=== PATIENT | male | born 1975 | race Two or more races ===

== ENCOUNTER 2019-04-18 13:20 | Emergency (ER) | payer BC, OTHER ==
--- NOTE | 2019-04-18 13:31 | PDOC ---
Rapid Medical Evaluation Time Seen by Provider: 04/18/19 13:28 Medical Evaluation: 04/18/19 13:28 I have performed a brief in-person evaluation of this patient. The patient presents with a chief complaint of: L neck/shoulder pain radiating to L elbow w/ numbness to fingers x 3 days. Had similar episode several years and dx w/ "tendinitis" to LUE and "arthritis" to c-spine. H/o HTN and DM Pertinent physical exam findings:Stable, unremarkable I have ordered the following:nothing The patient will proceed to the ED for further evaluation. 04/18/19 13:33 Discharge Disposition - Diagnosis Right arm pain - Referrals - Patient Instructions - Post Discharge Activity
[2019-04-18 13:37] VITALS: BP 146/105; PULSE 95; TEMP 98.4; BMI 26.6
[2019-04-18] MEDS ORDERED: IBUPROFEN 400 MG TABLET (FP) PO ONE ×2 (14:11→14:13)
[2019-04-18] MEDS ORDERED: CYCLOBENZAPRINE HCL 10 MG TABLET (FP) PO ONE (14:11)
[2019-04-18] MEDS ORDERED: CYCLOBENZAPRINE HCL 10 MG TABLET (FP) ONE (14:13)
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
== END 2019-04-18 17:25 | disposition home or self-care (01) ==
LOC: JERFT 13:20
DX: M54.12 Radiculopathy, cervical region (principal); I10 Essential (primary) hypertension; E11.9 Type 2 diabetes mellitus without complications; Z79.84 Long term (current) use of oral hypoglycemic drugs; M13.862 Other specified arthritis, left knee; M46.82 Other specified inflammatory spondylopathies, cervical region
CPT/HCPCS: 72125-TC; 99282-25

== ENCOUNTER 2020-08-04 17:53 | Emergency (ER) | payer BC, OTHER ==
--- NOTE | 2020-08-04 18:07 | PDOC ---
Rapid Medical Evaluation Medical Evaluation: Allergies Allergy/AdvReac Type Severity Reaction Status Date / Time No Known Allergies Allergy Verified 04/18/19 13:37 08/04/20 18:02 CC: rt hand weakness and "numbness to left 4th 5th digits since this am, temp of 99.0 2 days ago, + COVID 07/13 Exam: + sensation to left fingers x 5, flaccid rt hand, no facial asymmetry, ambulatory Plan: labs, head ct, iv, ekg 08/04/20 18:08 Discharge Disposition - Diagnosis Right hand weakness - Referrals - Patient Instructions - Post Discharge Activity
[2020-08-04 18:19] VITALS: TEMP 98.7; BMI 27.4
--- OUTSIDE RECORDS SUMMARY | 2020-08-04 18:23 | XMS ---
:1975 Author Organization [facility] Support Name Relationship Address Phone [facility] [employer] Unavailable [address] [place] [address] CARMEN NARANJO FRIEND [address] [facility] [place] [address] Re-disclosure Warning The records that you are about to access may contain information from federally- assisted alcohol or drug abuse programs. If such information is present, then the following federally mandated warning applies: This information has been disclosed to you from records protected by federal confidentiality rules (42 CFR part 2). The federal rules prohibit you from making any further disclosure of this information unless further disclosure is expressly permitted by the written consent of the person to whom it pertains or as otherwise permitted by 42 CFR part 2. A general authorization for the release of medical or other information is NOT sufficient for this purpose. The Federal rules restrict any use of the information to criminally investigate or prosecute any alcohol or drug abuse patient.The records that you are about to access may contain highly sensitive health information, the redisclosure of which is protected by Article 27-F of the [facility] Public Health law. If you continue you may haveaccess to information: Regarding HIV / AIDS; Provided by facilities licensed or operated by the [facility] Office of Mental Health; or Provided by the [facility] Office for People With Developmental Disabilities. If such information is present, then the following [facility] mandated warning applies: This information has been disclosed to you from confidential records which are protected by state law. State law prohibits you from making any further disclosure of this information without the specific written consent of the person to whom it pertains, or as otherwise permitted by law. Any unauthorized further disclosure in violation of state law may result in a fine or [place] health care facility sentence or both. A general authorization for the release of medical or other information is NOT sufficient authorization for further disclosure. Insurance Providers Payer Policy type Policy ID Covered Covered green party's Policy Pl an name / Coverage green party ID relationship to Reeder Inf ormation type reeder GHI CBP [id number] SP [id number] OUTPT BC PPO [id number] SP [id number] GHI CBP [id number] SP [id number] OUTPT BC PPO [id number] SP [id number] Results ID Date Data Source [id number] 07/13/2020 03:57:00 PM EDT [facility] Name Value Range Interpretation Code Description Data Annmarie rce(s) Supporting Document(s ) Rapid Covid [facility] Test (Nasal Swab) This lab was ordered by [facility] a nd reported by [facility]. ID Date Data Source [id number] 07/12/2020 02:54:00 PM EDT [facility] Name Value Range Interpretation Code Description Data Annmarie rce(s) Supporting Document(s ) SARS-CoV-2 [facility] ORF1ab Resp Ql NATALI+probe This lab was ordered by [facility] Results ([id number] ) and reported by [facility] Labs. Procedure
[2020-08-04] MEDS ORDERED: FOLIC ACID INJECTION - 1 MG, THIAMINE HCL 100 MG, MULTIVIT INJECTION ADULT 10 ML in SOD... IVPB ONE (18:45)
[2020-08-04] MEDS ORDERED: LACTATED RINGERS SOLUTION 1000 ML INFUS.BAG IV ONE (18:47)
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
[2020-08-04 19:22] LABS: BASO % 1.2 % (0-2.0); EOS % 0.6 % (0-4.5); HEMATOCRIT 48.9 % (35.4-49); HEMOGLOBIN 16.4 GM/dL (11.7-16.9); LYMPH % 21.2 % (8-40); MCH 28.2 pg (25.7-33.7); MCHC 33.5 g/dl (32.0-35.9); MEAN PLT VOLUME 9.7 fl (7.5-11.1); MONO % 7.8 % (3.8-10.2); NEUT % 69.2 % (42.8-82.8); PLATELET COUNT 270 K/MM3 (134-434); RBC 5.82 M/mm3 (4.00-5.60); RDW 12.7 % (11.9-15.9); WHITE BLOOD COUNT 10.4 K/mm3 (4.0-10.0)
--- NOTE | 2020-08-04 19:24 | PDOC ---
Documentation entered by Jacquie Devries SCRIBE, acting as scribe for Vanesa Cruz DO. Vanesa Cruz DO: This documentation has been prepared by the justino, Jacquie Devries SCRIBE, under my direction and personally reviewed by me in its entirety. I confirm that the documentation accurately reflects all work, treatment, procedures, and medical decision making performed by me. Attending Attestation - Resident Resident Name: JulianZoila - ED Attending Attestation I have performed the following: I have examined & evaluated the patient, The case was reviewed & discussed with the resident, I agree w/resident's findings & plan, Exceptions are as noted - HPI HPI: 08/04/20 18:34 Patient is a 44 year old male with no significant past medical history who presents to the ED with weakness in his right wrist. Patient stated he was drinking last night and woke up this morning with right wrist drop along with numbness in 4th/5th fingers and elbow weakness. Patient tested positive for Covid19 2 weeks ago. Patient endorses: weakness/ numbness in feet bilaterally. Patient denies: any weakness/ numbness anywhere else on his body, any vision changes, or any other related symptoms. Allergies: NKDA - Physicial Exam PE: 08/04/20 19:06 Gen: aaox3, resting comfortably heent: EOMI, dry mm, perrl, cracked tongue neck: supple heart: +s1s2 tachy lungs: cta b/l abd: soft, nt/nd +bs ext: R wrist drop, decreased sensation R hand all digits, pulses intact, 5/5 LUE and b/l LE, pulses intact, feet with cracked skin on the toes, pulses intact neuro: cn ii-xii grossly intact, R wrist drop, no other focal deficits - Medical Decision Making 08/04/20 19:11 a/p: 44yo male with recent covid + test on 07/13 with a fever 2 days ago and diarrhea a week ago with R wrist drop -was drinking alcohol last night- has not been eating or drinking regularly, but has been drinking daily -pt appears dehydrated -pt with parethesias L hand x1 m and b/l big toes x2 weeks - suspect diabetic neuropathy -pt with R wrist drop, suspect sunday night palsy -given recent covid though and possibility of hypercoagulable state will send for head ct -onset of R hand weakness was around 2-3am -no tpa given symptoms onset and less likely central disease, suspect peripheral nerve impingement 08/04/20 19:26 cxr clear 08/04/20 20:38 resident discussed the case with Dr. Looney labs reviewed ct head without acute findings suspect mononeuropathy and diabetic neuropathy placed in a wrist splint Dr. Looney requests the patient follow up in the office tomorrow 08/04/20 21:01 vss stable for dc to home and follow up with Neurology Discharge - Discharge Information Problems reviewed: Yes - Admission No - Discharge Information Clinical Impression/Diagnosis: Right hand weakness, Sunday night paralysis of right upper extremity Condition: Stable Disposition: HOME - Follow up/Referral Referrals: Donavon Looney MD [Staff Physician] - [facility] [place] [Provider Group] - Patient Discharge Instructions Additional Instructions: At home, avoid sleeping in positions that over flex your wrist, elbow, or place compression on your armpit. Avoid sleeping or laying on sofas/couches. Limit your drinking at home. Follow up with your PCP and the referred neurologist (Dr. Looney) within 5 days for further evaluation of your condition. Return to the ED if your symptoms worsen and or you experience headaches, visual changes, unsteady gait, weakness, numbness, facial asymmetry.
[2020-08-04 19:29] LABS: VENOUS BASE EXCESS 1.6 mmol/L (-2-2); VENOUS O2 SATURATION 94.8 % (70-80); VENOUS PCO2 38.1 mmHg (38-52); VENOUS PH 7.443 (7.310-7.410)
[2020-08-04 19:43] LABS: POTASSIUM 4.6 mmol/L (3.5-5.1)
[2020-08-04 19:45] LABS: BLOOD UREA NITROGEN 10.3 mg/dL (7-18); CALCIUM 9.8 mg/dL (8.5-10.1); MAGNESIUM 2.4 mg/dL (1.8-2.4)
[2020-08-04 19:48] LABS: CREATININE 0.7 mg/dL (0.55-1.3)
[2020-08-04 20:47] LABS: INR 1.05 (0.83-1.09); PROTHROMBIN TIME (PATIENT) 12.7 SEC (9.7-13.0)
[2020-08-04 20:49] LABS: ACTIVATED PTT 28.3 SECONDS (25.2-36.5)
[2020-08-04 20:52] VITALS: BP 152/99; PULSE 101
--- NOTE | 2020-08-05 11:49 | EKG ---
Test Reason : Blood Pressure : / mmHG Vent. Rate : 114 BPM Atrial Rate : 114 BPM P-R Int : 140 ms QRS Dur : 062 ms QT Int : 332 ms P-R-T Axes : 045 008 020 degrees QTc Int : 457 ms SINUS TACHYCARDIA OTHERWISE NORMAL ECG NO PREVIOUS ECGS AVAILABLE Confirmed by GOZNALEZ NICHOLAS MD ([id number]) on 08/05/2020 11:49:26 AM Referred By: Confirmed By:GONZALEZ NICHOLAS MD
== END 2020-08-04 21:18 | disposition home or self-care (01) ==
LOC: JER 17:53
PROC: 3E033NZ Introduction of Analgesics, Hypnotics, Sedatives into Peripheral Vein, Percutaneous Approach (ICD-10-PCS; principal; 2020-08-04)
DX: R53.1 Weakness (principal)
CPT/HCPCS: 36415; 70450-TC; 71045-TC-FY; 80053; 82803; 82962; 83735; 85025; 85610; 85730; 93005; 93010; 99285-25; C9803; U0003

== ENCOUNTER 2021-02-25 13:55 | Inpatient (IN) | payer BC, OTHER ==
[2021-02-25] MEDS ORDERED: morphine CARPU-JECT 4 MG/1 ML DISP.SYRIN IVPUSH ONE ×2 (14:25→16:51)
[2021-02-25] MEDS ORDERED: morphine SULFATE 4 MG/ML VIAL ONE ×3 (14:37→22:08)
[2021-02-25 14:59] LABS: BASO % 1.9 % (0-2.0); EOS % 0.5 % (0-4.5); HEMATOCRIT 46.3 % (35.4-49); HEMOGLOBIN 16.3 GM/dL (11.7-16.9); LYMPH % 20.3 % (8-40); MCH 30.5 pg (25.7-33.7); MCHC 35.2 g/dl (32.0-35.9); MEAN CELL VOLUME 86.8 fl (80-96); MEAN PLT VOLUME 8.3 fl (7.5-11.1); MONO % 8.7 % (3.8-10.2); NEUT % 68.6 % (42.8-82.8); PLATELET COUNT 259 K/MM3 (134-434); RBC 5.34 M/mm3 (4.00-5.60); RDW 13.1 % (11.9-15.9); WHITE BLOOD COUNT 6.6 K/mm3 (4.0-10.0)
[2021-02-25 15:07] LABS: INR 1.05 (0.83-1.09); PROTHROMBIN TIME (PATIENT) 12.9 SEC (9.7-13.0)
[2021-02-25 15:09] LABS: ACTIVATED PTT 31.6 SECONDS (25.2-36.5)
[2021-02-25 15:10] LABS: ALBUMIN 4.2 g/dl (3.4-5.0); CALCIUM 9.1 mg/dL (8.5-10.1)
[2021-02-25 15:11] LABS: BLOOD UREA NITROGEN 3.8 mg/dL (7-18)
[2021-02-25 15:14] LABS: CREATININE 0.6 mg/dL (0.55-1.3)
[2021-02-25 15:15] LABS: TOT PROT 7.6 g/dl (6.4-8.2)
[2021-02-25 15:16] LABS: LACTIC ACID 2.5 mmol/L (0.4-2.0)
[2021-02-25] MEDS ORDERED: SODIUM CHLORIDE 0.9% 500 ML INFUS.BAG IV ONE (15:19)
[2021-02-25] MEDS ORDERED: POTASSIUM CHLORIDE TABS 20 MEQ TABLET.ER (FP) PO ONE ×2 (19:09→19:21)
[2021-02-25] MEDS: SODIUM CHLORIDE 1,000 ML IV SCH (19:30)
[2021-02-25] MEDS ORDERED: THIAMINE HCL 100 MG TABLET (FP) ONE (20:36)
[2021-02-25] MEDS ORDERED: FOLIC ACID 1 MG TABLET (FP) ONE (20:37)
[2021-02-25] MEDS: FOLIC ACID 1 MG TABLET (FP) PO SCH (20:37)
[2021-02-25] MEDS: THIAMINE HCL 100 MG TABLET (FP) PO SCH (20:37)
[2021-02-25] MEDS ORDERED: FOLIC ACID INJECTION - 1 MG, THIAMINE HCL 100 MG, MULTIVIT INJECTION ADULT 10 ML in SOD... IVPB ONE (21:13)
[2021-02-25] MEDS ORDERED: morphine SULFATE 4 MG/ML VIAL IVPUSH PRN (21:14)
[2021-02-25] MEDS: morphine SULFATE 4 MG/ML VIAL IVPUSH PRN (22:15)
[2021-02-25] MEDS: INSULIN SLIDING SCALE (NOVOLOG) 1 VIAL SQ SCH (22:16)
[2021-02-26] MEDS: morphine SULFATE 4 MG/ML VIAL IVPUSH PRN ×3 (02:34→10:12)
[2021-02-26] MEDS: INSULIN SLIDING SCALE (NOVOLOG) 1 VIAL SQ SCH ×4 (06:27→21:23)
[2021-02-26] MEDS: SODIUM CHLORIDE 1,000 ML IV SCH ×2 (07:32→21:22)
[2021-02-26 08:04] LABS: ALBUMIN 3.5 g/dl (3.4-5.0); CALCIUM 8.5 mg/dL (8.5-10.1)
[2021-02-26 08:05] LABS: MAGNESIUM 1.9 mg/dL (1.8-2.4)
[2021-02-26 08:06] LABS: HEMATOCRIT 41.1 % (35.4-49); HEMOGLOBIN 14.4 GM/dL (11.7-16.9); MCH 30.9 pg (25.7-33.7); MCHC 35.2 g/dl (32.0-35.9); MEAN PLT VOLUME 8.7 fl (7.5-11.1); PLATELET COUNT 210 K/MM3 (134-434); RBC 4.67 M/mm3 (4.00-5.60); RDW 13.2 % (11.9-15.9); WHITE BLOOD COUNT 6.3 K/mm3 (4.0-10.0)
[2021-02-26 08:07] LABS: CREATININE 0.5 mg/dL (0.55-1.3)
[2021-02-26 08:09] LABS: BILIRUBIN,TOTAL 1.2 mg/dL (0.2-1); TOT PROT 6.4 g/dl (6.4-8.2)
[2021-02-26] MEDS: THIAMINE HCL 100 MG TABLET (FP) PO SCH (09:58)
[2021-02-26] MEDS: FOLIC ACID 1 MG TABLET (FP) PO SCH (09:58)
[2021-02-26] MEDS ORDERED: traMADol HCL 50 MG TABLET PO PRN (12:27)
[2021-02-26] MEDS ORDERED: morphine SULFATE 4 MG/ML VIAL IVPUSH PRN (12:28)
[2021-02-26] MEDS ORDERED: KETOROLAC TROMETHAMINE 15 MG/ML VIAL IVPUSH ONE (12:29)
[2021-02-27] MEDS: INSULIN SLIDING SCALE (NOVOLOG) 1 VIAL SQ SCH ×4 (06:01→21:04)
[2021-02-27] MEDS: FOLIC ACID 1 MG TABLET (FP) PO SCH (09:58)
[2021-02-27] MEDS: THIAMINE HCL 100 MG TABLET (FP) PO SCH (09:59)
[2021-02-27] MEDS ORDERED: KETOROLAC TROMETHAMINE 30 MG/1 ML VIAL IM PRN (10:47)
[2021-02-27] MEDS: SODIUM CHLORIDE 1,000 ML IV SCH (10:58)
[2021-02-27] MEDS: KETOROLAC TROMETHAMINE 30 MG/1 ML VIAL IVPUSH PRN ×2 (11:34→21:02)
[2021-02-27] MEDS: FAMOTIDINE 20 MG TABLET PO SCH (14:14)
[2021-02-27] MEDS: ACETAMINOPHEN 325 MG TABLET (FP) PO PRN (17:35)
[2021-02-27 19:54] VITALS: BMI 21.1
[2021-02-27] MEDS ORDERED: INSULIN (NOVOLOG) ASPART 100 UNITS/ML 10ML VIAL ONE (20:55)
[2021-02-28] MEDS: KETOROLAC TROMETHAMINE 30 MG/1 ML VIAL IVPUSH PRN ×2 (04:45→11:11)
[2021-02-28] MEDS: INSULIN SLIDING SCALE (NOVOLOG) 1 VIAL SQ SCH ×3 (06:10→16:33)
[2021-02-28 08:04] LABS: BASO % 1.1 % (0-2.0); EOS % 1.5 % (0-4.5); HEMATOCRIT 43.2 % (35.4-49); HEMOGLOBIN 15.2 GM/dL (11.7-16.9); LYMPH % 28.2 % (8-40); MCH 31.1 pg (25.7-33.7); MCHC 35.1 g/dl (32.0-35.9); MEAN CELL VOLUME 88.7 fl (80-96); MEAN PLT VOLUME 9.3 fl (7.5-11.1); NEUT % 59.2 % (42.8-82.8); PLATELET COUNT 205 K/MM3 (134-434); RBC 4.88 M/mm3 (4.00-5.60); RDW 12.7 % (11.9-15.9); WHITE BLOOD COUNT 6.4 K/mm3 (4.0-10.0)
[2021-02-28] MEDS: ACETAMINOPHEN 325 MG TABLET (FP) PO PRN (08:22)
[2021-02-28 08:23] LABS: BLOOD UREA NITROGEN 3.9 mg/dL (7-18); CALCIUM 9.1 mg/dL (8.5-10.1)
[2021-02-28 08:27] LABS: CREATININE 0.6 mg/dL (0.55-1.3)
[2021-02-28] MEDS: THIAMINE HCL 100 MG TABLET (FP) PO SCH (09:06)
[2021-02-28] MEDS: FAMOTIDINE 20 MG TABLET PO SCH (09:06)
[2021-02-28] MEDS: FOLIC ACID 1 MG TABLET (FP) PO SCH (09:06)
[2021-02-28] MEDS ORDERED: ENOXAPARIN NA (PORCINE) 40 MG/0.4 ML DISP.SYRIN SQ SCH (10:00)
[2021-02-28] MEDS ORDERED: MULTIVITAMINS (DAILY MVI) TABLET (FP) PO SCH (10:00)
[2021-02-28 14:01] VITALS: BP 138/89; PULSE 92; TEMP 97.3
[2021-02-28] MEDS ORDERED: morphine SULFATE 4 MG/ML VIAL IVPUSH PRN ×2 (15:11→15:12)
== END 2021-02-28 17:33 | disposition home or self-care (01) | DRG 200 ==
LOC: JER 13:55 → JERBED 16:39 → J7W 02-26 02:07
PROVIDERS: ADMIT Hospitalist; ATTEND Internal Medicine
DX: S27.0XXA Traumatic pneumothorax, initial encounter (principal); S22.42XA Multiple fractures of ribs, left side, initial encounter for closed fracture; E87.2 Acidosis; E11.9 Type 2 diabetes mellitus without complications; F17.210 Nicotine dependence, cigarettes, uncomplicated; Z91.14 Patient's other noncompliance with medication regimen; F10.10 Alcohol abuse, uncomplicated; W17.89XA Other fall from one level to another, initial encounter; Y92.098 Other place in other non-institutional residence as the place of occurrence of the external cause
CPT/HCPCS: 36415; 70450-TC; 71045-TC-FY; 71250-TC; 71260-TC; 72125-TC; 72128-TC; 72131-TC; 74177-TC; 80048; 80053; 80307; 82607; 82746; 82962; 83036; 83605; 83735; 84484; 85025; 85027; 85610; 85730; 86850; 86900; 86901; 93005; 93010; 94010; 99285-25; C9803; Q9967; U0003; U0005

== ENCOUNTER 2021-06-13 18:26 | Inpatient (IN) | payer BC ==
[2021-06-13] MEDS ORDERED: FOLIC ACID INJECTION - 1 MG, THIAMINE HCL 100 MG, MULTIVIT INJECTION ADULT 10 ML in SOD... IVPB ONE (19:53)
[2021-06-13 19:55] LABS: BASO % 0.7 % (0-2.0); EOS % 0.3 % (0-4.5); HEMATOCRIT 38.9 % (35.4-49); HEMOGLOBIN 14.2 GM/dL (11.7-16.9); MCH 30.2 pg (25.7-33.7); MCHC 36.4 g/dl (32.0-35.9); MEAN PLT VOLUME 9.7 fl (7.5-11.1); MONO % 15.4 % (3.8-10.2); NEUT % 66.6 % (42.8-82.8); PLATELET COUNT 162 10^3/uL (134-434); RBC 4.69 M/mm3 (4.00-5.60); RDW 12.3 % (11.9-15.9); VENOUS BASE EXCESS 7.3 mmol/L (-2-2); VENOUS O2 SATURATION 68.8 % (70-80); VENOUS PCO2 43.2 mmHg (38-52); VENOUS PH 7.483 (7.310-7.410); WHITE BLOOD COUNT 6.3 K/mm3 (4.0-10.0)
[2021-06-13 20:14] LABS: CHLORIDE 73 mmol/L (98-107); SODIUM 121 mmol/L (136-145)
[2021-06-13 20:16] LABS: ALBUMIN 3.7 g/dl (3.4-5.0); CALCIUM 9.1 mg/dL (8.5-10.1); CO2 34 mmol/L (21-32)
[2021-06-13 20:17] LABS: BLOOD UREA NITROGEN 9.7 mg/dL (7-18); GLUCOSE,RANDOM 262 mg/dL (74-106); MAGNESIUM 2.6 mg/dL (1.8-2.4)
[2021-06-13 20:19] LABS: PHOSPHOROUS 1.6 mg/dL (2.5-4.9)
[2021-06-13 20:20] LABS: CREATININE 0.8 mg/dL (0.55-1.3); SGOT/AST 322 U/L (15-37); SGPT/ALT 243 U/L (13-61)
[2021-06-13 20:21] LABS: BILIRUBIN,TOTAL 2.5 mg/dL (0.2-1); TOT PROT 7.1 g/dl (6.4-8.2)
[2021-06-13 20:22] LABS: ALK PHOS 265 U/L (45-117)
[2021-06-13] MEDS ORDERED: MAGNESIUM SULF 50% (8.12 MEQ/2 ML-1 GM VIAL) IVPB ONE (20:26)
[2021-06-13 21:02] LABS: ANION GAP 14 MMOL/L (8-16)
[2021-06-13] MEDS ORDERED: POTASSIUM CHLORIDE ORAL LIQUID 20 MEQ/15 ML PO ONE (21:05)
[2021-06-13 21:12] LABS: EPI CELLS 12 /uL (0-25.1); HYALINE CASTS 3 /uL (0-3.1); PH,URINE 6.5 (5.0-8.0); URINE APPEARANCE CLEAR; URINE BACTERIA 7 /uL (0-1359); URINE BILIRUBIN 2+ (NEGATIVE); URINE COLOR DK YELLOW; URINE GLUCOSE (UA) 3+ (NEGATIVE); URINE KETONE 4+ (NEGATIVE); URINE LEUK ESTERASE NEGATIVE (NEGATIVE); URINE NITRITE NEGATIVE (NEGATIVE); URINE PROTEIN 1+ (NEGATIVE); URINE RBC 33 /uL (0-23.9); URINE WBC 18 /uL (0-25.8)
[2021-06-13 21:19] LABS: BILIRUBIN,DIRECT 1.8 mg/dL (0.0-0.2)
[2021-06-13] MEDS ORDERED: POTASSIUM CHLORIDE ORAL LIQUID 20 MEQ/15 ML ONE (21:30)
[2021-06-13] MEDS ORDERED: KCL 10 MEQ IVPB 30 MEQ/300 ML INFUS.BAG IVPB ONE (21:30)
[2021-06-13] MEDS: KCL 10 MEQ IVPB 10 MEQ/100 ML INFUS.BAG IVPB SCH ×3 (21:35→23:44)
[2021-06-13] MEDS ORDERED: SODIUM CHLORIDE 0.9% 1000 ML INFUS.BAG IV ONE (23:53)
[2021-06-13] MEDS ORDERED: CEFTRIAXONE 1 GM in DEXTROSE 5%-WATER - 100 ML IVPB ONE (23:54)
[2021-06-13] MEDS ORDERED: CEFTRIAXONE 1 GM/50 ML BAG ONE (23:56)
[2021-06-14 03:01] LABS: CHLORIDE 84 mmol/L (98-107); SODIUM 126 mmol/L (136-145)
[2021-06-14 03:03] LABS: BLOOD UREA NITROGEN 7.6 mg/dL (7-18); CO2 33 mmol/L (21-32); GLUCOSE,RANDOM 192 mg/dL (74-106)
[2021-06-14 03:05] LABS: CREATININE 0.7 mg/dL (0.55-1.3)
[2021-06-14 03:12] LABS: ANION GAP 10 MMOL/L (8-16); CALCIUM 7.5 mg/dL (8.5-10.1)
[2021-06-14] MEDS ORDERED: POTASSIUM CHLORIDE TABS 20 MEQ TABLET.ER (FP) PO ONE ×4 (04:23→14:01)
[2021-06-14] MEDS ORDERED: SODIUM CHLORIDE 1,000 ML IV SCH (04:30)
[2021-06-14] MEDS ORDERED: KCL 10 MEQ IVPB 10 MEQ/100 ML INFUS.BAG IVPB SCH (04:30)
[2021-06-14] MEDS ORDERED: KCL 10 MEQ IVPB 10 MEQ/100 ML INFUS.BAG IVPB ONE (04:35)
[2021-06-14] MEDS ORDERED: PROCHLORPERAZINE INJECTION 10 MG/2 ML VIAL IVPB PRN (04:36)
[2021-06-14] MEDS ORDERED: LORazepam 1 MG TABLET PO PRN (04:40)
[2021-06-14] MEDS ORDERED: NAPH,MB-DB/K PH,MBDB POWDER PACKET ONE ×2 (06:26→14:01)
[2021-06-14] MEDS: NAPH,MB-DB/K PH,MBDB POWDER PACKET PO SCH ×3 (06:28→21:32)
[2021-06-14 06:45] LABS: HEMATOCRIT 35.6 % (35.4-49); HEMOGLOBIN 13.3 GM/dL (11.7-16.9); MCH 31.2 pg (25.7-33.7); MCHC 37.3 g/dl (32.0-35.9); MEAN CELL VOLUME 83.6 fl (80-96); MEAN PLT VOLUME 10.8 fl (7.5-11.1); PLATELET COUNT 142 10^3/uL (134-434); RBC 4.26 M/mm3 (4.00-5.60); RDW 12.3 % (11.9-15.9); WHITE BLOOD COUNT 5.5 K/mm3 (4.0-10.0)
[2021-06-14 06:52] LABS: CHLORIDE 85 mmol/L (98-107); SODIUM 126 mmol/L (136-145)
[2021-06-14 06:55] LABS: BLOOD UREA NITROGEN 5.2 mg/dL (7-18); CALCIUM 7.7 mg/dL (8.5-10.1); CO2 30 mmol/L (21-32)
[2021-06-14 06:57] LABS: ALBUMIN 3.2 g/dl (3.4-5.0); GLUCOSE,RANDOM 179 mg/dL (74-106)
[2021-06-14 06:59] LABS: SGPT/ALT 203 U/L (13-61)
[2021-06-14 07:00] LABS: CREATININE 0.6 mg/dL (0.55-1.3); MAGNESIUM 2.3 mg/dL (1.8-2.4); SGOT/AST 268 U/L (15-37)
[2021-06-14 07:01] LABS: BILIRUBIN,TOTAL 1.9 mg/dL (0.2-1); TOT PROT 6.2 g/dl (6.4-8.2)
[2021-06-14 07:13] LABS: ALK PHOS 225 U/L (45-117); ANION GAP 11 MMOL/L (8-16)
[2021-06-14] MEDS: INSULIN SLIDING SCALE (NOVOLOG) 1 VIAL SQ SCH ×4 (08:00→21:43)
[2021-06-14] MEDS ORDERED: SODIUM PHOSPHATE - 0 MM in DEXTROSE 5%-WATER - 250 ML IVPB ONE (08:02)
[2021-06-14] MEDS: POTASSIUM CHLORIDE TABS 20 MEQ TABLET.ER (FP) PO SCH ×2 (08:25→14:07)
[2021-06-14] MEDS ORDERED: SODIUM PHOSPHATE - 45 MM in DEXTROSE 5%-WATER - 500 ML IVPB ONE (08:47)
[2021-06-14] MEDS ORDERED: FOLIC ACID 1 MG TABLET (FP) ONE (09:36)
[2021-06-14] MEDS ORDERED: THIAMINE HCL 100 MG TABLET (FP) ONE (09:36)
[2021-06-14] MEDS ORDERED: ENOXAPARIN NA (PORCINE) 40 MG/0.4 ML DISP.SYRIN SQ ONE (09:37)
[2021-06-14] MEDS ORDERED: PANTOPRAZOLE SODIUM 40 MG VIAL ONE (09:37)
[2021-06-14] MEDS: ENOXAPARIN NA (PORCINE) 40 MG/0.4 ML DISP.SYRIN SQ SCH (09:48)
[2021-06-14] MEDS: PANTOPRAZOLE SODIUM 40 MG VIAL IVPUSH SCH (09:48)
[2021-06-14] MEDS: THIAMINE HCL 100 MG TABLET (FP) PO SCH (09:48)
[2021-06-14] MEDS: FOLIC ACID 1 MG TABLET (FP) PO SCH (09:49)
[2021-06-14] MEDS ORDERED: PT OWN MED DRAWER 7, Y5N ONE (09:54)
[2021-06-14] MEDS: NICOTINE 7 MG/24 HOURS TOPICAL PATCH TD SCH (10:10)
[2021-06-14] MEDS ORDERED: INSULIN SLIDING SCALE (NOVOLOG) 1 VIAL SQ ONE (12:03)
[2021-06-14 14:49] LABS: CHLORIDE 89 mmol/L (98-107); SODIUM 128 mmol/L (136-145)
[2021-06-14 14:50] LABS: CALCIUM 7.5 mg/dL (8.5-10.1)
[2021-06-14 14:51] LABS: BLOOD UREA NITROGEN 3.8 mg/dL (7-18); CO2 29 mmol/L (21-32); GLUCOSE,RANDOM 211 mg/dL (74-106)
[2021-06-14 14:54] LABS: ANION GAP 10 MMOL/L (8-16); CREATININE 0.7 mg/dL (0.55-1.3); PHOSPHOROUS 2.2 mg/dL (2.5-4.9)
[2021-06-14] MEDS ORDERED: POTASSIUM CHLORIDE ORAL LIQUID 20 MEQ/15 ML PO ONE (15:49)
[2021-06-14] MEDS ORDERED: POTASSIUM CHLORIDE ORAL LIQUID 20 MEQ/15 ML ONE (16:24)
[2021-06-14] MEDS: SODIUM CHLORIDE 1,000 ML with POTASSIUM CHLORIDE 20 MEQ IV SCH (17:07)
[2021-06-14] MEDS ORDERED: MORPHINE SULFATE 2 MG/ML VIAL IVPUSH ONE (21:54)
[2021-06-14 21:56] LABS: CHLORIDE 91 mmol/L (98-107); SODIUM 130 mmol/L (136-145)
[2021-06-14 21:58] LABS: CALCIUM 7.9 mg/dL (8.5-10.1)
[2021-06-14 21:59] LABS: BLOOD UREA NITROGEN 4.2 mg/dL (7-18); CO2 30 mmol/L (21-32); GLUCOSE,RANDOM 205 mg/dL (74-106)
[2021-06-14 22:02] LABS: CREATININE 0.9 mg/dL (0.55-1.3); PHOSPHOROUS 1.4 mg/dL (2.5-4.9)
[2021-06-14 22:08] LABS: ANION GAP 9 MMOL/L (8-16)
[2021-06-14] MEDS ORDERED: GABAPENTIN 100 MG CAPSULE PO ONE (22:42)
[2021-06-15] MEDS: INSULIN SLIDING SCALE (NOVOLOG) 1 VIAL SQ SCH ×4 (06:42→21:03)
[2021-06-15] MEDS: NAPH,MB-DB/K PH,MBDB POWDER PACKET PO SCH ×3 (06:42→21:00)
[2021-06-15 08:58] LABS: INR 1.12 (0.83-1.09); PROTHROMBIN TIME (PATIENT) 13.5 SEC (9.7-13.0)
[2021-06-15 09:00] LABS: ACTIVATED PTT 29.2 SECONDS (25.2-36.5)
[2021-06-15 09:07] LABS: CHLORIDE 90 mmol/L (98-107); SODIUM 131 mmol/L (136-145)
[2021-06-15 09:08] LABS: CALCIUM 8.3 mg/dL (8.5-10.1)
[2021-06-15 09:09] LABS: ALBUMIN 3.3 g/dl (3.4-5.0); GLUCOSE,RANDOM 171 mg/dL (74-106)
[2021-06-15 09:11] LABS: ANION GAP 10 MMOL/L (8-16); CO2 31 mmol/L (21-32)
[2021-06-15 09:12] LABS: BILIRUBIN,DIRECT 0.9 mg/dL (0.0-0.2)
[2021-06-15 09:13] LABS: BILIRUBIN,TOTAL 1.3 mg/dL (0.2-1); CREATININE 0.5 mg/dL (0.55-1.3); IRON SERUM 106 ug/dL (50-175); SGOT/AST 184 U/L (15-37); SGPT/ALT 177 U/L (13-61); TOTAL IRON BINDING CAPACITY 207 ug/dL (250-450)
[2021-06-15 09:15] LABS: ALK PHOS 239 U/L (45-117); TOT PROT 6.5 g/dl (6.4-8.2)
[2021-06-15 09:39] LABS: BLOOD UREA NITROGEN 2.2 mg/dL (7-18)
[2021-06-15] MEDS ORDERED: POTASSIUM CHLORIDE TABS 20 MEQ TABLET.ER (FP) PO ONE (09:45)
[2021-06-15] MEDS: ENOXAPARIN NA (PORCINE) 40 MG/0.4 ML DISP.SYRIN SQ SCH (10:10)
[2021-06-15] MEDS: POLYETHYLENE GLYCOL (HEALTHYLAX) 3350 17 GM PACKET PO SCH ×2 (10:11→10:52)
[2021-06-15] MEDS: NICOTINE 7 MG/24 HOURS TOPICAL PATCH TD SCH ×2 (10:11→10:52)
[2021-06-15] MEDS: PANTOPRAZOLE SODIUM 40 MG VIAL IVPUSH SCH (10:11)
[2021-06-15] MEDS: FOLIC ACID 1 MG TABLET (FP) PO SCH (10:11)
[2021-06-15] MEDS: THIAMINE HCL 100 MG TABLET (FP) PO SCH (10:11)
[2021-06-15] MEDS: SODIUM CHLORIDE 1,000 ML with POTASSIUM CHLORIDE 20 MEQ IV SCH (10:24)
[2021-06-15 15:37] VITALS: BMI 19.2
[2021-06-15] MEDS ORDERED: LORazepam 1 MG TABLET PO PRN (19:57)
[2021-06-15] MEDS ORDERED: PROCHLORPERAZINE INJECTION 10 MG/2 ML VIAL IVPB PRN (19:57)
[2021-06-15] MEDS ORDERED: SODIUM CHLORIDE 0.9%/KCL 20 MEQ/1,000 ML INFUS.BAG IV SCH (19:57)
[2021-06-16] MEDS ORDERED: LORazepam 0.5 MG TABLET PO PRN ×2
[2021-06-16] MEDS: NAPH,MB-DB/K PH,MBDB POWDER PACKET PO SCH ×2 (05:10→15:05)
[2021-06-16] MEDS: INSULIN SLIDING SCALE (NOVOLOG) 1 VIAL SQ SCH ×3 (06:00→17:53)
[2021-06-16] MEDS ORDERED: PT OWN MED DRAWER 7, Y5N ONE ×3 (09:13→13:29)
[2021-06-16] MEDS ORDERED: ENOXAPARIN NA (PORCINE) 40 MG/0.4 ML DISP.SYRIN SQ SCH (10:00)
[2021-06-16] MEDS ORDERED: MULTIVITAMINS (DAILY MVI) TABLET (FP) PO SCH (10:00)
[2021-06-16] MEDS ORDERED: THIAMINE HCL 100 MG TABLET (FP) PO SCH (10:00)
[2021-06-16] MEDS ORDERED: POLYETHYLENE GLYCOL (HEALTHYLAX) 3350 17 GM PACKET PO SCH (10:00)
[2021-06-16] MEDS ORDERED: NICOTINE 7 MG/24 HOURS TOPICAL PATCH TD SCH (10:00)
[2021-06-16] MEDS ORDERED: FOLIC ACID 1 MG TABLET (FP) PO SCH (10:00)
[2021-06-16 10:15] LABS: BASO % 1.4 % (0-2.0); HEMATOCRIT 38.6 % (35.4-49); HEMOGLOBIN 13.8 GM/dL (11.7-16.9); LYMPH % 31.6 % (8-40); MCH 30.7 pg (25.7-33.7); MCHC 35.9 g/dl (32.0-35.9); MEAN CELL VOLUME 85.7 fl (80-96); MEAN PLT VOLUME 10.1 fl (7.5-11.1); MONO % 13.1 % (3.8-10.2); NEUT % 52.9 % (42.8-82.8); PLATELET COUNT 194 10^3/uL (134-434); RDW 13.2 % (11.9-15.9); WHITE BLOOD COUNT 6.1 K/mm3 (4.0-10.0)
[2021-06-16 10:45] LABS: ALBUMIN 3.4 g/dl (3.4-5.0); BLOOD UREA NITROGEN 4.8 mg/dL (7-18); CALCIUM 8.8 mg/dL (8.5-10.1)
[2021-06-16 10:46] LABS: ALBUMIN 3.4 g/dl (3.4-5.0); BLOOD UREA NITROGEN 4.4 mg/dL (7-18); INR 1.08 (0.83-1.09); PROTHROMBIN TIME (PATIENT) 13.3 SEC (9.7-13.0)
[2021-06-16 10:48] LABS: BILIRUBIN,DIRECT 0.8 mg/dL (0.0-0.2); BILIRUBIN,TOTAL 1.1 mg/dL (0.2-1); CALCIUM 8.8 mg/dL (8.5-10.1); CREATININE 0.5 mg/dL (0.55-1.3); TOT PROT 6.5 g/dl (6.4-8.2)
[2021-06-16 10:50] LABS: CREATININE 0.5 mg/dL (0.55-1.3); TOT PROT 6.4 g/dl (6.4-8.2)
[2021-06-16 11:09] LABS: CARCINOEMBRYONIC ANTIGEN 7.7 ng/mL (0.0-4.7)
[2021-06-16] MEDS ORDERED: SODIUM CHLORIDE 1 GM TABLET PO ONE (15:29)
[2021-06-16 17:05] VITALS: BP 100/74; PULSE 80; TEMP 99
[2021-06-16] MEDS ORDERED: INSULIN (NOVOLOG) ASPART 100 UNITS/ML 10ML VIAL ONE (17:15)
[2021-06-16 18:07] LABS: GLIADIN ANTIBODY IGA 5 units (0-19); GLIADIN ANTIBODY IGG 3 units (0-19); TRANSGLUTAMINASE IGG < 2 U/mL (0-5)
== END 2021-06-16 18:39 | disposition home or self-care (01) | DRG 433 ==
LOC: JER 18:26 → JERBED 22:58 → J4W 06-14 20:13 → J8W 06-15 19:33
PROVIDERS: ADMIT Internal Medicine; ATTEND Nurse Practitioner Family
DX: K70.10 Alcoholic hepatitis without ascites (principal); E87.1 Hypo-osmolality and hyponatremia; E11.9 Type 2 diabetes mellitus without complications; R74.01 Elevation of levels of liver transaminase levels; E87.6 Hypokalemia; E83.39 Other disorders of phosphorus metabolism; E11.65 Type 2 diabetes mellitus with hyperglycemia; E11.43 Type 2 diabetes mellitus with diabetic autonomic (poly)neuropathy; K31.84 Gastroparesis; R11.2 Nausea with vomiting, unspecified; F17.210 Nicotine dependence, cigarettes, uncomplicated; F10.20 Alcohol dependence, uncomplicated; K76.1 Chronic passive congestion of liver
CPT/HCPCS: 36415; 71045-TC-FY; 74177-TC; 76705-TC; 80048; 80053; 80076; 80307; 81003; 82010; 82105; 82248; 82378; 82436; 82550; 82607; 82746; 82784; 82803; 82962; 83036; 83516; 83540; 83550; 83735; 83930; 83935; 84100; 84133; 84300; 84484; 85025; 85027; 85610; 85730; 86301; 86706; 86708; 87086; 87517; 87522; 93005; 93010; 99285-25; C9803; U0003; U0005

== ENCOUNTER 2022-08-27 22:29 | Emergency (ER) | payer BC ==
[2022-08-27 23:57] VITALS: TEMP 97.7; BMI 20.3
[2022-08-28 02:42] LABS: BASO % 0.7 % (0-2.0); EOS % 0.2 % (0-4.5); HEMATOCRIT 43.9 % (35.4-49); HEMOGLOBIN 14.9 GM/dL (11.7-16.9); LYMPH % 14.2 % (8-40); MCH 31.5 pg (25.7-33.7); MEAN CELL VOLUME 92.6 fl (80-96); MEAN PLT VOLUME 8.9 fl (7.5-11.1); MONO % 6.6 % (3.8-10.2); NEUT % 78.3 % (42.8-82.8); PLATELET COUNT 235 10^3/uL (134-434); RBC 4.74 M/mm3 (4.00-5.60); RDW 13.2 % (11.9-15.9); WHITE BLOOD COUNT 13.4 K/mm3 (4.0-10.0)
[2022-08-28 02:46] LABS: VENOUS BASE EXCESS 4.2 mmol/L (-2-2); VENOUS PCO2 40.4 mmHg (38-52); VENOUS PH 7.463 (7.310-7.410)
[2022-08-28 02:58] LABS: INR 2.14 (0.83-1.09); PROTHROMBIN TIME (PATIENT) 24.8 SEC (9.7-13.0)
[2022-08-28 03:00] LABS: ACTIVATED PTT 44.5 SECONDS (25.2-36.5)
[2022-08-28 03:02] LABS: CHLORIDE 81 mmol/L (98-107); SODIUM 124 mmol/L (136-145)
[2022-08-28 03:11] LABS: N-TERMINAL BNP 71.8 pg/ml (5-125)
[2022-08-28] MEDS ORDERED: LIDOCAINE 1.5%-EPINEPHRINE 1:200,000/PF 30 ML VIAL IJ ONE (03:15)
[2022-08-28] MEDS ORDERED: LIDOCAINE 1%/EPI 1:100000 (20 ML MULTI DOSE VIAL) ONE (03:17)
[2022-08-28 03:22] LABS: EPI CELLS 2 /uL (0-25.1); HYALINE CASTS 2 /uL (0-3.1); PH,URINE 5.5 (5.0-8.0); URINE APPEARANCE TURBID; URINE BILIRUBIN 3+ (NEGATIVE); URINE COLOR DK YELLOW; URINE GLUCOSE (UA) TRACE (NEGATIVE); URINE KETONE TRACE (NEGATIVE); URINE LEUK ESTERASE 2+ (NEGATIVE); URINE NITRITE POSITIVE (NEGATIVE); URINE PROTEIN 1+ (NEGATIVE); URINE RBC 255 /uL (0-23.9); URINE WBC 70 /uL (0-25.8)
[2022-08-28] MEDS ORDERED: morphine SULFATE 4 MG/ML VIAL IVPUSH ONE (03:23)
[2022-08-28] MEDS ORDERED: morphine SULFATE 4 MG/ML VIAL ONE (03:27)
[2022-08-28 03:28] LABS: LDH 187 U/L (87-246)
[2022-08-28] MEDS ORDERED: CEFTRIAXONE 1 GM in DEXTROSE 5%-WATER - 50 ML IVPB ONE (04:25)
[2022-08-28 04:35] LABS: CREATININE 0.6 mg/dL (0.55-1.3)
[2022-08-28 04:57] LABS: LACTIC ACID 2.2 mmol/L (0.4-2.0)
[2022-08-28 05:05] LABS: CO2 29 mmol/L (21-32); MAGNESIUM 1.9 mg/dL (1.8-2.4)
[2022-08-28 05:09] LABS: SGPT/ALT 75 U/L (13-61)
[2022-08-28 05:12] LABS: ALK PHOS 213 U/L (45-117)
[2022-08-28 05:17] LABS: ALBUMIN 2.2 g/dl (3.4-5.0); ANION GAP 14 MMOL/L (8-16); BILIRUBIN,TOTAL 16.3 mg/dL (0.2-1); BLOOD UREA NITROGEN 6.9 mg/dL (7-18); GLUCOSE,RANDOM 163 mg/dL (74-106); LIPASE 109 U/L (73-393); SGOT/AST 401 U/L (15-37); TOT PROT 7.4 g/dl (6.4-8.2)
[2022-08-28] MEDS ORDERED: POTASSIUM CHLORIDE TABS 20 MEQ TABLET.ER (FP) PO ONE ×2 (07:34→07:41)
[2022-08-28] MEDS ORDERED: CEFTRIAXONE 1 GM/50 ML BAG ONE (07:35)
[2022-08-28 08:23] LABS: URINE BACTERIA 2 /uL (0-1359)
[2022-08-28] MEDS ORDERED: INSULIN SLIDING SCALE (NOVOLOG) 1 VIAL SQ SCH (11:00)
[2022-08-28 11:05] VITALS: BP 109/73; PULSE 103; RESP 22
== END 2022-08-28 12:07 | disposition short-term general hospital (02) ==
LOC: JER 22:29 → UNDOADMIN 08-28 05:35 → JERBED 08-28 05:35 → JER 08-28 12:07
PROC: 3E03329 Introduction of Other Anti-infective into Peripheral Vein, Percutaneous Approach (ICD-10-PCS; principal; 2022-08-28)
PROC: 3E033NZ Introduction of Analgesics, Hypnotics, Sedatives into Peripheral Vein, Percutaneous Approach (ICD-10-PCS; 2022-08-28)
DX: R10.84 Generalized abdominal pain (principal); R19.00 Intra-abdominal and pelvic swelling, mass and lump, unspecified site
CPT/HCPCS: 0241U-QW; 36415; 71045-TC-FY; 74177-TC; 80053; 81003; 82105; 82248; 82803; 83605; 83615; 83690; 83735; 83880; 84484; 85025; 85610; 85730; 87086; 93005; 93010; 99285-25; Q9967

== ENCOUNTER 2024-01-10 22:34 | Emergency (ER) | payer BC, OTHER ==
[2024-01-10 22:53] VITALS: RESP 16; BMI 17.4
[2024-01-10] MEDS ORDERED: PANTOPRAZOLE SODIUM 80 MG/200 ML BAG IVPB ONE (23:44)
[2024-01-10] MEDS ORDERED: ONDANSETRON 4 MG/2 ML VIAL ONE (23:44)
[2024-01-10] MEDS ORDERED: OCTREOTIDE ACETATE 100 MCG/1 ML ONE (23:45)
[2024-01-10] MEDS ORDERED: PANTOPRAZOLE SODIUM 40 MG VIAL ONE (23:45)
[2024-01-10 23:48] LABS: BASO % 0.9 % (0-2.0); EOS % 0.6 % (0-4.5); HEMATOCRIT 23.2 % (35.4-49); HEMOGLOBIN 7.9 GM/dL (11.7-16.9); LYMPH % 27.6 % (8-40); MCH 28.1 pg (25.7-33.7); MEAN CELL VOLUME 82.6 fl (80-96); MONO % 7.3 % (3.8-10.2); NEUT % 63.6 % (42.8-82.8); PLATELET COUNT 163 10^3/uL (134-434); RDW 14.6 % (11.9-15.9); WHITE BLOOD COUNT 6.8 K/mm3 (4.0-10.0)
[2024-01-10 23:54] LABS: INR 1.55 (0.83-1.09); PROTHROMBIN TIME (PATIENT) 17.9 SEC (9.7-13.0)
[2024-01-10 23:57] LABS: ACTIVATED PTT 35.7 SECONDS (25.2-36.5)
[2024-01-11] MEDS: ONDANSETRON 4 MG/2 ML VIAL IVPUSH ONE
[2024-01-11] MEDS: PANTOPRAZOLE SODIUM 80 MG in SODIUM CHLORIDE 100 ML IVPB SCH
[2024-01-11] MEDS: OCTREOTIDE ACETATE 50 MCG/1 ML - 1 ML VIAL IVPUSH ONE
[2024-01-11 00:07] LABS: POTASSIUM 3.7 mmol/L (3.5-5.1)
[2024-01-11 00:08] LABS: CALCIUM 8.4 mg/dL (8.5-10.1)
[2024-01-11 00:09] LABS: ALBUMIN 2.3 g/dl (3.4-5.0); BLOOD UREA NITROGEN 22.8 mg/dL (7-18)
[2024-01-11] MEDS: OCTREOTIDE ACETATE 200 MCG, OCTREOTIDE ACETATE 1,000 MCG in DEXTROSE 5%-WATER - 496 ML IVPB SCH (00:10)
[2024-01-11 00:12] LABS: CREATININE 0.5 mg/dL (0.55-1.3)
[2024-01-11] MEDS: PANTOPRAZOLE SODIUM 40 MG VIAL IVPUSH ONE (00:13)
[2024-01-11 00:14] LABS: BILIRUBIN,TOTAL 1.1 mg/dL (0.2-1)
[2024-01-11] MEDS ORDERED: CEFTRIAXONE 1 GM/50 ML BAG ONE (00:22)
[2024-01-11] MEDS: CEFTRIAXONE 1 GM in DEXTROSE 5%-WATER - 100 ML IVPB ONE (00:24)
[2024-01-11 00:42] VITALS: TEMP 98.2
[2024-01-11 00:44] LABS: LACTIC ACID 2.2 mmol/L (0.4-2.0)
[2024-01-11 01:06] VITALS: BP 104/75; PULSE 78
== END 2024-01-11 01:11 | disposition short-term general hospital (02) ==
LOC: JER 22:34
PROC: 3E03329 Introduction of Other Anti-infective into Peripheral Vein, Percutaneous Approach (ICD-10-PCS; principal; 2024-01-11)
PROC: 3E033GC Introduction of Other Therapeutic Substance into Peripheral Vein, Percutaneous Approach (ICD-10-PCS; 2024-01-11)
PROC: 3E033GC Introduction of Other Therapeutic Substance into Peripheral Vein, Percutaneous Approach (ICD-10-PCS; 2024-01-11)
PROC: 3E033GC Introduction of Other Therapeutic Substance into Peripheral Vein, Percutaneous Approach (ICD-10-PCS; 2024-01-11)
DX: K92.2 Gastrointestinal hemorrhage, unspecified (principal); E72.20 Disorder of urea cycle metabolism, unspecified; R41.82 Altered mental status, unspecified; R11.2 Nausea with vomiting, unspecified; Z20.822 Contact with and (suspected) exposure to COVID-19
CPT/HCPCS: 0241U-QW; 36415; 36430; 71045-TC-FY; 80053; 82140; 82272; 82962; 83605; 83690; 84484; 85025; 85610; 85730; 86922; 93005; 93010; 99291; P9058